=== PATIENT | female | born 1980 | race Hispanic/Latino ===

== ENCOUNTER 2018-10-02 18:14 | Inpatient (IN) | payer BC ==
[~2018-10-02] VITALS: Ht 157.5 cm; Wt 71.8 kg
[2018-10-02] MEDS ORDERED: PANTOPRAZOLE 40 MG 10ML VIAL IV ONE ×2 (18:15→20:15)
[2018-10-02 19:19] LABS: BASOPHILS % 0.3 % (0.0-1.0); EOSINOPHILS # (AUTO) 0.1 (0.0-0.4); EOSINOPHILS % 0.4 % (0.0-6.0); HEMATOCRIT 38.6 % (34.2-44.1); HEMOGLOBIN 14.4 g/dL (12.0-16.0); LYMPHOCYTES # (AUTO) 2.8 (1.0-3.2); LYMPHOCYTES % 23.5 % (18.0-39.1); MEAN CORPUSCULAR HEMOGLOBIN 32.2 pg (28-32); MEAN CORPUSCULAR HGB CONC 37.3 g/dL (31-35); MEAN CORPUSCULAR VOLUME 86.4 fL (81-99); MONOCYTES # (AUTO) 0.5 (0.2-0.8); MONOCYTES % 4.2 % (4.4-11.3); NEUTROPHILS # (AUTO) 8.5 (2.1-6.9); NEUTROPHILS % 71.3 % (38.7-80.0); PLATELET COUNT 217 x10e3/uL (140-360); RED BLOOD COUNT 4.47 x10e6/uL (3.6-5.1); RED CELL DISTRIBUTION WIDTH 11.5 % (11.7-14.4)
[2018-10-02 19:42] LABS: ALANINE AMINOTRANSFERASE 30 IU/L (0-55); ALBUMIN 4.1 g/dL (3.5-5.0); ALBUMIN/GLOBULIN RATIO 0.7 (0.8-2.0); ALKALINE PHOSPHATASE 82 IU/L (40-150); ANION GAP 23.7 mmol/L (8-16); BLOOD UREA NITROGEN 8 mg/dL (7-26); BUN/CREATININE RATIO 12 (6-25); CARBON DIOXIDE 13 mmol/L (22-29); CHLORIDE 99 mmol/L (98-107); CREATININE, SERUM 0.67 mg/dL (0.57-1.11); EST GLOMERULAR FILTRATION RATE > 60 ML/MIN (60-); GLUCOSE 85 mg/dL (74-118); POTASSIUM 3.7 mmol/L (3.5-5.1)
[2018-10-02 19:51] LABS: SODIUM 132 mmol/L (136-145)
[2018-10-02] MEDS ORDERED: ONDANSETRON HCL INJ 2MG/ML 2ML 2 MG/ML VIAL IV ONE (20:15)
[2018-10-02 20:18] LABS: AMYLASE 79 U/L (25-125); LIPASE 156 U/L (8-78)
[2018-10-02] MEDS ORDERED: SODIUM CHLORIDE 0.9% 1000ML 1,000 ML ONE (20:37)
[2018-10-02] MEDS ORDERED: SODIUM CHLORIDE 0.9% 1000ML 1,000 ML IV SCH (21:00)
[2018-10-02] MEDS ORDERED: HYDROMORPHONE 1MG/1ML INJ IV STA (21:55)
--- NOTE | 2018-10-02 21:55 | Diagnostic Imaging Report ---
EXAM: US GALLBLADDER DATE: 10/02/2018 12:00 AM INDICATION: , Right upper quadrant pain COMPARISON: None TECHNIQUE: Transverse and longitudinal ashford scale and color doppler sonographic images of the upper abdomen were obtained. FINDINGS: LIVER 20.4 cm in the right midclavicular line. Increased echogenicity. No masses. Normal contour. GALLBLADDER Mobile gallstone measuring 1.7 cm. Single echogenic focus with comet tail artifact noted. Negative sonographic Plascencia's sign. BILE DUCTS No intra nor extra-hepatic biliary dilation. Common bile duct measures 0.3 cm PANCREAS: Visualized portions are normal. RIGHT KIDNEY: 12.2 cm Echogenicity: Normal Collecting System: No hydronephrosis Stones: None Cyst/Mass: None VESSELS: Aorta: Visualized portions are within normal size limits Inferior Vena Cava: Visualized portions are normal Main Portal Vein: normal size with hepatopetal flow. FREE FLUID: None IMPRESSION: 1. Hepatic steatosis with hepatomegaly. 2. Cholelithiasis without acute cholecystitis. Signed by: Dr Melania Edwards MD on 10/02/2018 9:52 PM
[2018-10-02] MEDS ORDERED: HYDROMORPHONE 2MG/ML 2 MG/ML ML IV ONE (22:00)
[2018-10-02 22:35] LABS: BILIRUBIN,URINE NEGATIVE (NEGATIVE); CLARITY,URINE CLEAR (CLEAR); COLOR,URINE YELLOW (YELLOW); KETONES,URINE NEGATIVE (NEGATIVE); LEUKOCYTE ESTERASE ,URINE NEGATIVE (NEGATIVE); NITRITE,URINE NEGATIVE (NEGATIVE); PREGNANCY TEST, URINE NEGATIVE (NEGATIVE); PROTEIN,URINE DIPSTICK NEGATIVE (NEGATIVE); URINE UROBILINOGEN 0.2 mg/dL (0.2 - 1)
[2018-10-02] MEDS ORDERED: HYDROMORPHONE 1MG/1ML INJ IV PRN (22:45)
--- OUTSIDE RECORDS SUMMARY | 2018-10-02 22:50 | XMS REPORT ---
Author Author [facility] Address Unknown Phone Unavailable Care Team Providers Care Administrative Support Manager Name Role Phone Jevon CHRISTOPHER Unavailable Unavailable Problems This patient has no known problems. Allergies, Adverse Reactions, Alerts This patient has no known allergies or adverse reactions. Medications This patient has no known medications. Results Test Description Test Time Test Comments Text Results Atomic Results Result Comments US GALLBLADDER 2018-10-02 21:49:00 [place] [id number] Patient Name: DWAYNE FIELD MR #: [id number] : 1980 Age/Sex: 38/F Req #: [id number] Adm Physician: Ordered by: NIRMAL PARKS MD Report #: [id number] Location: ER Room/Bed: Procedure: [id number] US/US GALLBLADDER Exam Date: 10/02/18 Exam Time: 2052 REPORT STATUS: Signed EXAM: US GALLBLADDER DATE: 10/02/2018 12:00 AM IN DICATION: , Right upper quadrant pain COMPARISON: None TECHNIQUE: Transverse and longitudinal ashford scale and color doppler sonographic images of the upper abdomen were obtained. FINDINGS: LIVER 20.4 cm in the right midclavicular line. Increased echogenicity. No masses. Normal contour. GALLBLADDER Mobile gallstone measuring 1.7 cm. Single echogenic focus with comet tail artifact noted. Negative sonographic Plascencia's sign. BILE DUCTS No intra nor extra-hepatic biliary dilation. Common bile duct measures 0.3 cm PANCREAS: Visualized portions are normal. RIGHT KIDNEY: 12.2 cm Echogenicity: Normal Collecting System: No hydronephrosis Stones: None Cyst/Mass: None VESSELS: Aorta: Visualized portions are within normal size limits Inferior Vena Cava: Visualized portions are normal Main Portal Vein: normal size with hepatopetal flow. FREE FLUID: None IMPRESSION: 1. Hepatic steatosis with hepatomegaly. 2. Cholelithiasis without acute cholecystitis. Signed by: Dr Moris Edwards MD on 10/02/2018 9:52 PM Dictated By: MORIS EDWARDS MD 51 Transcribed By: DEE on 10/02/182151 COPY TO: NIRMAL PARKS MD
[2018-10-02] MEDS: SODIUM CHLORIDE 0.9% 1000ML 1,000 ML IV SCH (22:59)
[2018-10-02 23:01] LABS: BACTERIA,URINE MODERATE /HPF; EPITHELIAL CELLS,URINE MODERATE /LPF; RBC,URINE 0-5 /HPF (0-5); WBC,URINE (MAN) 0-5 /HPF (0-5)
[2018-10-02 23:02] LABS: MUCUS,URINE MANY (RARE)
[2018-10-02] MEDS: METRONIDAZOLE 500MG/NS 100ML 100 ML IV SCH (23:06)
[2018-10-02] MEDS: ONDANSETRON HCL INJ 2MG/ML 2ML 2 MG/ML VIAL IV PRN (23:07)
[2018-10-02 23:58] VITALS: BP 144/81
[2018-10-03 00:57] VITALS: BP 144/81
[2018-10-03 04:00] VITALS: BP 113/58
[2018-10-03] MEDS: SODIUM CHLORIDE 0.9% 1000ML 1,000 ML IV SCH ×3 (05:21→19:59)
[2018-10-03] MEDS: METRONIDAZOLE 500MG/NS 100ML 100 ML IV SCH ×3 (05:28→17:47)
[2018-10-03 06:01] LABS: ALANINE AMINOTRANSFERASE 21 IU/L (0-55); ALBUMIN 3.2 g/dL (3.5-5.0); ALBUMIN/GLOBULIN RATIO 0.9 (0.8-2.0); ALKALINE PHOSPHATASE 75 IU/L (40-150); AMYLASE 50 U/L (25-125); ANION GAP 19.8 mmol/L (8-16); BLOOD UREA NITROGEN 5 mg/dL (7-26); BUN/CREATININE RATIO 8 (6-25); CARBON DIOXIDE 14 mmol/L (22-29); CHLORIDE 105 mmol/L (98-107); CREATININE, SERUM 0.61 mg/dL (0.57-1.11); EST GLOMERULAR FILTRATION RATE > 60 ML/MIN (60-); GLUCOSE 117 mg/dL (74-118); LIPASE 112 U/L (8-78); POTASSIUM 3.8 mmol/L (3.5-5.1); SODIUM 135 mmol/L (136-145)
[2018-10-03 06:11] LABS: BASOPHILS % 0.4 % (0.0-1.0); EOSINOPHILS % 0.3 % (0.0-6.0); HEMATOCRIT 33.7 % (34.2-44.1); HEMOGLOBIN 11.8 g/dL (12.0-16.0); LYMPHOCYTES # (AUTO) 2.5 (1.0-3.2); LYMPHOCYTES % 26.6 % (18.0-39.1); MEAN CORPUSCULAR VOLUME 85.8 fL (81-99); MONOCYTES # (AUTO) 0.6 (0.2-0.8); MONOCYTES % 5.9 % (4.4-11.3); NEUTROPHILS # (AUTO) 6.2 (2.1-6.9); NEUTROPHILS % 66.5 % (38.7-80.0); PLATELET COUNT 172 x10e3/uL (140-360); RED BLOOD COUNT 3.93 x10e6/uL (3.6-5.1); RED CELL DISTRIBUTION WIDTH 11.6 % (11.7-14.4)
[2018-10-03] MEDS: CEFOXITIN 1GM/ NS 50ML 50 ML IV SCH ×4 (06:47→22:07)
[2018-10-03 09:36] VITALS: BP 115/68
[2018-10-03] MEDS ORDERED: ACETAMINOPHEN 1000 MG/100 ML IV SCH (12:00)
[2018-10-03 13:27] VITALS: BP 106/60
--- NOTE | 2018-10-03 14:57 | Diagnostic Imaging Report ---
EXAM: MRI MRCP WO DATE: 10/03/2018 10:41 PM INDICATION: Abdominal pain. COMPARISON: Right upper quadrant ultrasound dated 10/02/2018 TECHNIQUE: MRCP protocol performed using1.5 Sharon. Sequences obtained include axial T2 FRFSE FS, coronal and axial T2 SSFSE, SSFSE coronal spins. FINDINGS: Diffuse hepatic parenchymal signal loss on out of phase images, representing steatosis. Hepatomegaly measuring 22 cm in the midclavicular craniocaudal line. No T2 hyperintense hepatic lesion. Full evaluation is limited without intravenous contrast. 1.4 cm gallstone in gallbladder neck. No wall thickening. No pericholecystic fluid. Common bile duct is within normal limits. The spleen is borderline in size, measuring 12.6 cm. Adrenal glands and kidneys are grossly unremarkable. No hydronephrosis. Questionable mild edema around the pancreatic tail (series 6 and 9, image 18) versus artifact. No pancreatic ductal dilatation. Visualized bowel loops are unremarkable. No evidence of bowel obstruction. No upper abdominal lymphadenopathy. IMPRESSION: 1. Suspected mild edema around the pancreatic tail, could represent pancreatitis versus artifact. Recommend correlation with lab values. 2. Cholelithiasis without evidence of cholecystitis. 3. Enlarged steatotic liver. Signed by: Dr. Douglas Cantor MD on 10/03/2018 2:54 PM
[2018-10-03 16:27] VITALS: BP 130/58
[2018-10-03] MEDS ORDERED: HYDROMORPHONE 2MG/ML 2 MG/ML ML IV PRN ×2 (17:15→17:30)
--- NOTE | 2018-10-03 17:52 | History and Physical ---
HISTORY OF PRESENT ILLNESS: Patient is a 38-year-old female, only past medical history positive for agitation and diabetes, came here with abdominal pain and nausea. Patient was found to have mild pancreatitis in the tail and also gallstones with one of the gallstones impacted in the cystic duct. MRCP has been done. There is no evidence of any stones in the common bile duct. REVIEW OF SYSTEMS: CARDIOVASCULAR: No chest pain, no palpitation. RESPIRATORY: No shortness of breath. No cough. GASTROINTESTINAL: She has got right upper quadrant abdominal pain. Nausea and vomiting. No diarrhea. GENITOURINARY: No frequency, no dysuria. PAST MEDICAL HISTORY: Only positive for gestational diabetes. SOCIAL HISTORY: She does not smoke. She does not drink. PHYSICAL EXAMINATION: VITAL SIGNS: Blood pressure 130/58, temperature 98.5, heart rate 82 per minute, respiratory rate 18 per minute, oxygen saturation 99%. HEART: Shows regular rhythm. Normal S1 and S2 sounds. LUNGS: Clear bilaterally. ABDOMEN: Soft. She does have right upper quadrant tenderness. No tenderness, no distention. No visceromegaly. On the BMP: Sodium 135, potassium 3.8, chloride 105, CO2 14, BUN 5, creatinine 0.61, glucose 117. On the CBC: White blood count 9.39, hemoglobin 9.8, hematocrit 33.7, platelet count 172,000. AST 15, ALT 21, total bilirubin 0.5, alkaline phosphatase 75. Lipase 112, which is slightly elevated. MRCP showed only impacted stone in the cystic duct. The gallbladder ultrasound showed gallstone but no evidence of any inflammation in the gallbladder. IMPRESSION: 1. Acute cholecystitis. 2. Acute pancreatitis. 3. Fatty liver. PLAN OF TREATMENT: NPO. Will continue with cefoxitin 2 grams IV q.8 hours. Metronidazole 500 mg IV q.6 hours. Continue normal saline at 150 mL an hour. Dilaudid 1 mg IV q.4 hours as needed for severe pain. Zofran 4 mg IV q.4 hours as needed. Consultation with Dr. Valdovinos for surgery and Dr. Gray for gastroenterology. We are going to repeat a CMP and a lipase level tomorrow. Job#: [id number] EV
[2018-10-03] MEDS: ONDANSETRON HCL INJ 2MG/ML 2ML 2 MG/ML VIAL IV PRN (19:45)
[2018-10-03 20:00] VITALS: BP 134/81
[2018-10-03] MEDS ORDERED: ACETAMINOPHEN 1000 MG/100 ML IV PRN (20:15)
[2018-10-03] MEDS ORDERED: PROMETHAZINE 12.5MG/ NACL 0.9% 12.5 MG/50 ML BAG IV PRN (21:45)
[2018-10-04] VITALS (8 sets, daily range): BP systolic 106–129; BP diastolic 57–77
[2018-10-04] MEDS: SODIUM CHLORIDE 0.9% 1000ML 1,000 ML IV SCH ×3 (01:21→13:59)
[2018-10-04] MEDS: CEFOXITIN 1GM/ NS 50ML 50 ML IV SCH ×2 (05:30→17:05)
[2018-10-04 05:56] LABS: ALANINE AMINOTRANSFERASE 18 IU/L (0-55); ALBUMIN 3.3 g/dL (3.5-5.0); ALKALINE PHOSPHATASE 71 IU/L (40-150); ANION GAP 12.6 mmol/L (8-16); BLOOD UREA NITROGEN 7 mg/dL (7-26); BUN/CREATININE RATIO 11 (6-25); CALCIUM 8.2 mg/dL (8.4-10.2); CARBON DIOXIDE 22 mmol/L (22-29); CHLORIDE 105 mmol/L (98-107); CREATININE, SERUM 0.62 mg/dL (0.57-1.11); EST GLOMERULAR FILTRATION RATE > 60 ML/MIN (60-); GLUCOSE 80 mg/dL (74-118); LIPASE 76 U/L (8-78); POTASSIUM 3.6 mmol/L (3.5-5.1); SODIUM 136 mmol/L (136-145)
[2018-10-04] MEDS: METRONIDAZOLE 500MG/NS 100ML 100 ML IV SCH ×5 (06:25→23:42)
--- NOTE | 2018-10-04 07:08 | Consultation ---
DATE OF CONSULTATION: October 04, 2018 Patient is a 38-year-old female who presents with complaints of right upper quadrant abdominal pain. She has had the pain off and on for awhile. Became more severe about 3 days ago. She has associated nausea and vomiting. She came to the emergency room where evaluation revealed gallstones. She has also had an MRCP, which did not reveal any common bile duct stones. Patient says her pain is much better now. There are no symptoms of jaundice. PAST MEDICAL HISTORY: Otherwise unremarkable. She denies chronic medical problems. PAST SURGICAL HISTORY: Only previous surgery was section times 3. ALLERGIES: SHE HAS AN ALLERGY TO PENICILLIN. FAMILY HISTORY: Noncontributory. SOCIAL HISTORY: The patient does not smoke cigarettes or does not drink alcohol. REVIEW OF SYSTEMS: Is as stated above. Otherwise, was negative. PHYSICAL EXAMINATION GENERAL: The patient is awake, alert and in no distress. VITAL SIGNS: Normal. HEENT: Reveals no scleral icterus. NECK: Has no masses. LUNGS: Equal breath sounds are clear bilaterally. CARDIAC: Regular rate and rhythm with no murmur. ABDOMEN: Soft. There is slight right upper quadrant tenderness. There is no mass. There were no signs of peritonitis. There is no organomegaly. EXTREMITIES: Have no edema. Pulses are palpable. NEUROLOGIC: Intact. ASSESSMENT: This is a 38-year-old female admitted with gallstone pancreatitis, which has now resolved. She will benefit from a cholecystectomy. PLAN: Schedule for today. Procedure was explained to the patient, including risks, benefits and alternatives. She understands. She has had an opportunity to ask questions. She is aware of the possible need for open surgery. Thank you for asking me to see Ms. Parks. Job#: [id number] NE
[2018-10-04] MEDS ORDERED: BUPIVACAINE 0.25% 30ML SDV INJ ONE (13:16)
[2018-10-04] MEDS ORDERED: HYDROCODONE/APAP 5MG-325MG TAB PO PRN (14:00)
[2018-10-04] MEDS ORDERED: MORPHINE SULFATE INJ 4 MG/ML INJ 1ML IV PRN ×2 (14:00→14:30)
[2018-10-04] MEDS ORDERED: ACETAMINOPHEN 1000 MG/100 ML IV PRN (14:30)
[2018-10-04] MEDS ORDERED: ONDANSETRON HCL INJ 2MG/ML 2ML 2 MG/ML VIAL ONE ×2 (14:47→17:34)
[2018-10-04] MEDS ORDERED: METOCLOPRAMIDE HCL 10 MG/2ML VIAL ONE (14:47)
[2018-10-04] MEDS ORDERED: FENTANYL CITRATE/PF 100MCG/2 ML INJ ONE (14:53)
[2018-10-04] MEDS ORDERED: MIDAZOLAM HCL 2 MG/2 ML VIAL ONE (14:53)
[2018-10-04] MEDS ORDERED: HYDROMORPHONE 2MG/ML 2 MG/ML ML ONE (14:58)
--- NOTE | 2018-10-04 15:09 | Operative Report ---
DATE OF PROCEDURE: October 04, 2018 PREOPERATIVE DIAGNOSES 1. Pancreatitis. 2. Cholelithiasis. POSTOPERATIVE DIAGNOSES 1. Pancreatitis. 2. Cholelithiasis. PROCEDURES PERFORMED 1. Diagnostic laparoscopy. 2. Laparoscopic cholecystectomy. ELECTRIC SERVICEMAN: None. ANESTHESIA: General endotracheal. INDICATIONS AND FINDINGS: The patient is a 38-year-old female admitted to the hospital with complaints of right upper quadrant abdominal pain. Workup revealed evaluated lipase. Workup revealed gallstones. At surgery patient was found to have a gallbladder that was mildly distended, mildly edematous. There were no obvious changes of pancreatitis. Gallbladder contained at least 1 large stone. Cystic duct was about 3 mm in diameter. Common bile duct was about 6 mm in diameter. TECHNIQUE: After adequate general endotracheal anesthesia, patient in supine position, the abdomen was prepped and draped in sterile fashion with ChloraPrep solution. Skin in the umbilicus was infiltrated with 1/2 percent Marcaine. Incision was made in the umbilicus. Abdominal wall was elevated, and a Veress needle was introduced. Pneumoperitoneum was then created. A 10 mm trocar and cannula was then passed through the umbilical wound. Laparoscopic camera was introduced. Initial laparoscopy revealed the gallbladder to be mildly edematous and mildly distended. Liver, stomach, lower abdomen all appeared normal. A 10 mm trocar and cannula was placed in the epigastrium, and two 5 mm trocars and cannulas were placed in the right upper quadrant. These were placed under direct vision. Fundus of the gallbladder was grasped and retracted superiorly. Neck of the gallbladder was grasped and retracted laterally. Peritoneum over the neck of the gallbladder was incised. The gallbladder at cystic duct junction was dissected free. Cystic artery was also dissected free. The neck of the gallbladder was completely dissected free. The cystic artery and cystic duct were seen to be running together, and these were clipped together with 3 clips being left on the common bile duct side and divided. There was a posterior branch of the cystic artery which was also divided between hemoclips. The gallbladder was dissected free from the liver using scissors and electrocautery. Once it was entirely free, it was placed into an Endopouch and brought out through the epigastric cannula. There was at least 1 stone palpable. Gallbladder bed was inspected for hemostasis, which was seen to be adequate. It was irrigated with saline. All fluid aspirated. Inspected for hemostasis, which was seen to be adequate. Instruments and cannulas were removed. Pneumoperitoneum was evacuated. Wounds were then closed. Fascia in the umbilical and epigastric wounds closed with 0 Vicryl. Skin to all wounds closed with vicky. Sterile dressing was applied. The patient tolerated the procedure well. Estimated blood loss was 10 mL. There were no complications. All counts were correct. Patient was taken to the recovery room in satisfactory condition. Job#: [id number] EV
--- NOTE | 2018-10-04 16:29 | Progress Note ---
DATE: October 04, 2018 INTERNAL MEDICINE PROGRESS NOTE SUBJECTIVE: Patient just underwent a laparoscopic cholecystectomy. Of course, she is in pain. PHYSICAL EXAM: VITAL SIGNS: Blood pressure 129/62. Temperature 97.3. Heart rate 83 per minute. Respiratory rate is 18 per minute. Oxygen saturation 100%. HEART: Shows regular rhythm. Normal S1 and S2 sounds. LUNGS: Clear bilaterally. ABDOMEN: Distended. On the BMP: Sodium 136, potassium 3.6, BUN 105, CO2 22, BUN 7, creatinine 0.62, glucose 80. On the CBC: White blood count 9.39, hemoglobin 10.8, hematocrit 33.7, platelet count 172,000. AST 13, ALT 18, total bilirubin 0.4, alkaline phosphatase 71. Lipase is back to normal at 76. FINAL IMPRESSION: 1. Acute cholecystitis, status post laparoscopic cholecystectomy. 2. Mild pancreatitis. PLAN OF TREATMENT: We are going to continue n.p.o. status. Continue Flagyl 500 mg IV q.6 hours. Cefoxitin 2 grams IV q.8 hours. Continue normal saline at 100 mL an hour. Zofran 4 mg IV q.4 hours as needed. Promethazine 12.5 mg IV q.3 hours as needed. [place] 10/325 q.4 hours as needed. Tylenol 1000 mg q.4 hours as needed for pain or fever. Morphine 3 mg IV q.3 hours. So, patient most likely will start a clear-liquid diet tomorrow and then advance as tolerated if okay with the surgeon. I am going to order a CMP and lipase level tomorrow. Job#: [id number] EV
[2018-10-04] MEDS ORDERED: SEVOFLURANE INHAL SOLN 250 ML PEN BTL ONE (17:34)
[2018-10-04] MEDS ORDERED: ATROPINE SULFATE 1 MG/ML VIAL ONE (17:34)
[2018-10-04] MEDS ORDERED: LIDOCAINE HCL 2% LOCAL INJ 5 ML SDV VIAL INJ ONE (17:34)
[2018-10-04] MEDS ORDERED: SUCCINYLCHOLINE 200 MG/10 ML SYR ONE (17:34)
[2018-10-04] MEDS ORDERED: ACETAMINOPHEN 1000 MG/100 ML IV ONE (17:34)
[2018-10-04] MEDS ORDERED: DEXAMETHASONE SOD PHOS INJ 4 MG/ML VIAL ONE (17:34)
[2018-10-04] MEDS ORDERED: NEOSTIGMINE 5 MG/5ML SYR ONE (17:34)
[2018-10-04] MEDS ORDERED: PROPOFOL IV EMULSION 10 MG/ML 20 ML VIAL ONE (17:34)
[2018-10-04] MEDS ORDERED: KETOROLAC TROMETHAMINE 30 MG/ML VIAL ONE (17:34)
[2018-10-04] MEDS: HYDROCODONE/APAP 5MG-325MG TAB PO PRN ×2 (18:05→22:14)
--- NOTE | 2018-10-04 20:37 | Consultation ---
DATE OF CONSULTATION: October 04, 2018 GI CONSULT CHIEF COMPLAINT: Gallstone pancreatitis, possible choledocholithiasis. HISTORY OF PRESENT ILLNESS: A 38-year-old female, who got admitted with acute onset of right upper quadrant and epigastric pain associated with some nausea, vomiting times 1 day. In the emergency room, she was afebrile. Lipase was mildly elevated. Liver enzymes were normal. Gallbladder ultrasound showed fatty liver, cholelithiasis without sonographic evidence of any cholecystitis. Common bile duct not dilated. She ultimately ended up having MRCP that showed cholelithiasis, fatty liver and mild edema around pancreatic tail to suggest pancreatitis. No stone in the common bile duct. She successfully underwent a laparoscopic cholecystectomy today. Patient has been allowed on clear liquid. She is passing flatus postoperatively. REVIEW OF SYSTEMS: Twelve-point system reviewed. Symptomatology is limited as per HPI. PAST MEDICAL HISTORY: Gestational diabetes and history of agitation in the past. PAST SURGICAL HISTORY: Cholecystectomy on this admission. SOCIAL HISTORY: No smoking, alcohol or any illicit drug use. ALLERGIES: TO PENICILLIN. HOME MEDICATIONS: None. INPATIENT MEDICATIONS: Reviewed as per NOV. PHYSICAL EXAMINATION VITAL SIGNS: Temperature 96.8, pulse 90, respirations 18, blood pressure 123/60, oxygen saturation 96% on room air. GENERAL: Not in any acute distress. Oral mucosa is moist. Anicteric sclerae. LYMPH: No neck or axillary adenopathy. CVS: S1, S2 regular. LUNGS: Bilaterally grossly clear. ABDOMEN: Soft. Mild palpable epigastric and right upper quadrant incisional tenderness. No rebound, rigidity or guarding. Positive bowel sounds. EXTREMITIES: Warm. No leg edema. LABORATORY DATA: Reviewed. IMAGING: Reviewed. IMPRESSION: Mild gallstone pancreatitis, status post laparoscopic cholecystectomy. PLAN: Postop care as per surgery. Patient has a fatty liver. This needs further management as an outpatient. I have given patient my business card. She will call my office to set up an appointment to see me in a couple of weeks. Follow gallbladder surgical pathology. Job#: [id number]
[2018-10-04] MEDS ORDERED: CEFOXITIN 1GM/ NS 50ML 50 ML IV SCH (22:00)
[2018-10-05] VITALS: BP 106/55
[2018-10-05] MEDS: SODIUM CHLORIDE 0.9% 1000ML 1,000 ML IV SCH ×2 (00:30→08:17)
[2018-10-05] MEDS: CEFOXITIN 1GM/ NS 50ML 50 ML IV SCH ×2 (00:30→08:13)
[2018-10-05 04:00] VITALS: BP 100/58
[2018-10-05] MEDS: HYDROCODONE/APAP 5MG-325MG TAB PO PRN ×3 (05:10→13:55)
[2018-10-05] MEDS: METRONIDAZOLE 500MG/NS 100ML 100 ML IV SCH ×2 (05:28→11:52)
[2018-10-05 05:48] LABS: ALANINE AMINOTRANSFERASE 19 IU/L (0-55); ALBUMIN 3.1 g/dL (3.5-5.0); ALKALINE PHOSPHATASE 73 IU/L (40-150); ANION GAP 12.7 mmol/L (8-16); BLOOD UREA NITROGEN 6 mg/dL (7-26); BUN/CREATININE RATIO 10 (6-25); CALCIUM 8.3 mg/dL (8.4-10.2); CARBON DIOXIDE 22 mmol/L (22-29); CHLORIDE 105 mmol/L (98-107); CREATININE, SERUM 0.61 mg/dL (0.57-1.11); EST GLOMERULAR FILTRATION RATE > 60 ML/MIN (60-); GLUCOSE 83 mg/dL (74-118); LIPASE 51 U/L (8-78); POTASSIUM 3.7 mmol/L (3.5-5.1); SODIUM 136 mmol/L (136-145)
[2018-10-05 07:49] VITALS: BP 151/83
[2018-10-05 12:14] VITALS: BP 149/73
[2018-10-05 14:34] VITALS: BP 149/73
[2018-10-05] MEDS: ONDANSETRON HCL INJ 2MG/ML 2ML 2 MG/ML VIAL IV PRN (15:25)
[2018-10-05 16:11] VITALS: BP 127/69
--- NOTE | 2018-10-05 23:39 | Discharge Summary ---
HISTORY OF PRESENT ILLNESS: Patient is status post cholecystectomy, complaining of abdominal pain. PHYSICAL EXAMINATION VITAL SIGNS: Blood pressure 127/69, temperature 96.8, heart rate 70 per minute, respiratory rate 18 per minute, oxygen saturation 96%. HEART: Shows regular rhythm. Normal S1, S2 sounds. LUNGS: Clear bilaterally. ABDOMEN: Soft. Decreased bowel sounds. LABS: BMP shows sodium 136, potassium 3.7, chloride 105, CO2 22, BUN 6, creatinine 0.61, glucose 83. On the CBC, white blood count 9.39, hemoglobin 11.8, hematocrit 33.7, platelet count 172,000, lipase is 51. FINAL IMPRESSIONS 1. Acute cholecystitis. 2. Acute pancreatitis which is resolved. PLAN OF TREATMENT: The patient will continue with Tylenol 4 one tablet every 4 hours as needed for severe pain. Follow up with Dr. Valdovinos, surgeon, in a week. DIET: Low-fat diet. MARIE NOLAN MD Job#: [id number] GE
== END 2018-10-05 17:03 | disposition home or self-care (01) | DRG 418 ==
LOC: ER 18:14 → ERHOLD 22:48 → MED/SURG 10-03 00:14
PROVIDERS: ADMIT Internal Medicine; ATTEND Internal Medicine
PROC: 0FT44ZZ Resection of Gallbladder, Percutaneous Endoscopic Approach (ICD-10-PCS; principal; 2018-10-04 13:21)
DX: K85.10 Biliary acute pancreatitis without necrosis or infection (principal); K80.00 Calculus of gallbladder with acute cholecystitis without obstruction; K76.0 Fatty (change of) liver, not elsewhere classified; Z88.0 Allergy status to penicillin
CPT/HCPCS: 36415; 74181; 76705; 80053; 81001; 81025; 82150; 83690; 85025; 88304; 96367; 99284; J0461; J1100; J1885; J2001; J2250; J2270; J2405; J2550; J2765; J7030